=== PATIENT | male | born 1965 | race Hispanic/Latino ===

== ENCOUNTER 2019-06-09 18:30 | Observation (INO) | payer BC ==
[~2019-06-09] VITALS: Ht 172.7 cm; Wt 77.1 kg
--- OUTSIDE RECORDS SUMMARY | 2019-06-09 18:32 | XMS REPORT | Clinical Summary ---
Author Author [facility] Address Unknown Phone Unavailable Care Team Providers Care Microsoft Systems Engineer Name Role Phone Vincent Burns MD PCP Allergies No Known Allergies Medications End Date Status Medication Sig Dispensed Refills Start Date Active acetaminophen-codeine Take 1 tablet 0 (TYLENOL WITH CODEINE #3) by mouth as 9 300-30 mg per tablet needed. 03/05/2019 Discontinued [id number] Take 2 3 packet 0 wrg-[id number]-asb-C packets by 9 (PLENVU) 140-9-5.2 gram mouth 2 (two) powder in packet, times a day. sequential First dose 5 pm, second dose 2 am. Active Problems Problem Noted Date Left lower quadrant pain 02/20/2019 Overview: Added automatically from request for surgery [id number] Encounters Care Team Description Date Type Specialty Toya Phan LPN Left lower quadrant pain (Primary Dx) 03/28/2019 Telephone Gastroenterology Alex Brink MD COLONOSCOPY with bx 03/06/2019 Surgery Gastroenterology Jefferson Parks MD 03/06/2019 Anesthesia Gastroenterology Event Alex Brink MD Left lower quadrant pain (Primary Dx) 03/06/2019 Hospital Gastroenterology Encounter Alex Brink MD 02/25/2019 Telephone Gastroenterology Alex Brink MD Left lower quadrant pain (Primary Dx) 02/20/2019 Office Visit Gastroenterology Xenia Lo MA COLON INSTRUCTIONS 02/20/2019 Documentation Gastroenterology Xenia Lo MA Left lower quadrant pain (Primary Dx) 02/20/2019 Prep for Gastroenterology Surgery after 06/08/2018 Family History Medical History Relation Name Comments Cancer Father Cancer Sister Relation Name Status Comments Father Sister Social History Date Tobacco Use Types Packs/Day Years Used Quit: 2010 Former Smoker Cigarettes Smokeless Tobacco: Never Used Alcohol Use Drinks/Week oz/Week Comments Yes 40 Cans of 24.0 beer Sex Assigned at Date Recorded Not on file Industry Job Start Date Occupation Not on file Not on file Not on file Travel End Travel History Travel Start No recent travel history available. Last Filed Vital Signs Time Taken Vital Sign Reading 03/06/2019 11:35 AM CDT Blood Pressure 110/70 03/06/2019 11:35 AM CDT Pulse 60 03/06/2019 11:20 AM CDT Temperature 36.6 C (97.9 F) 03/06/2019 11:35 AM CDT Respiratory Rate 24 03/06/2019 11:35 AM CDT Oxygen Saturation 95% - Inhaled Oxygen - Concentration 03/06/2019 10:08 AM CDT Weight 86.2 kg (190 lb) 03/06/2019 10:08 AM CDT Height 170.2 cm (5' 7") 03/06/2019 10:08 AM CDT Body Mass Index 29.76 Plan of Treatment Health Maintenance Due Date Last Done Comments COLONOSCOPY SCREENING 2015 SHINGLES VACCINES (#1) 2015 INFLUENZA VACCINE 05/29/2019 Procedures Comments Procedure Name Priority Date/Time Associated Diagnosis COLONOSCOPY 03/06/2019 Left lower quadrant pain 11:15 AM CDT SURGICAL PATHOLOGY Routine 03/06/2019 REQUEST 11:14 AM CDT HEPATIC FUNCTION PANEL Routine 02/20/2019 Left lower quadrant pain 2:12 PM CDT CBC WITH PLATELET AND Routine 02/20/2019 Left lower quadrant pain DIFFERENTIAL 2:12 PM CDT BASIC METABOLIC PANEL Routine 02/20/2019 Left lower quadrant pain 2:12 PM CDT after 06/08/2018 Results * Surgical pathology request (03/06/2019 11:14 AM CDT) [facility]OLOGY AND GENOMIC MEDICINE Surgical See link below for PDF Lab [facility] pathology Report OF PATHOLOGY report AND GENOMIC MEDICINE Result status This is Final Report for [facility] [id number] OF PATHOLOGY AND GENOMIC MEDICINE Specimen Performing Organization Address City/State/Zipcode Phone Number [place] [address] [place] [address] PATHOLOGY AND GENOMIC MEDICINE * CBC with platelet and differential (02/20/2019 2:12 PM CDT) Pathologist [facility] WBC 9.8 3.8 - 10.8 [facility] Thousand/uL [facility] [place] RBC 4.23 4.20 - 5.80 [facility] Million/uL [facility] [place] HGB 13.6 13.2 - 17.1 g/dL [facility] [place] HCT 39.3 38.5 - 50.0 % [facility] [place] MCV 92.9 80.0 - 100.0 fL [facility] [place] MCH 32.2 27.0 - 33.0 pg [facility] [place] MCHC 34.6 32.0 - 36.0 g/dL [facility] [place] RDW 12.8 11.0 - 15.0 % [facility] [place] Platelet count 364 140 - 400 [facility] Thousand/uL [facility] [place] MPV 10.4 7.5 - 12.5 fL [facility] [place] Neutrophils, 5,919 1,500 - 7,800 [facility] absolute cells/uL [facility] [place] Lymphocytes, 2,705 850 - 3,900 cells/uL [facility] absolute [facility] [place] Monocytes, 833 200 - 950 cells/uL [facility] absolute [facility] [place] Eosinophils, 294 15 - 500 cells/uL [facility] absolute [facility] [place] Basophils, 49 0 - 200 cells/uL [facility] absolute [facility] [place] Neutrophils 60.4 % [employer] [place] Lymphocytes 27.6 % [facility] [place] Monocytes 8.5 % [facility] [place] Eosinophils 3.0 % [employer] [place] Basophils + RC 0.5 % [employer] [place] Specimen Blood Narrative Performed At FASTING:NO [facility] FASTING: NO Resulting Agency Comment Performing Organization Information: Site ID: [id number] Name: [facility] Address: [address] [place] [id number] Director: Miranda Whitney Performing Organization Address City/State/Zipcode Phone Number [facility] [place] [phone] * Hepatic function panel (02/20/2019 2:12 PM CDT) [facility] Protein 6.6 6.1 - 8.1 g/dL [facility] [place] Albumin, S 3.9 3.6 - 5.1 g/dL [facility] [place] Globulin, total 2.7 1.9 - 3.7 g/dL [facility] (calc) [facility] [place] Albumin/globuli 1.4 1.0 - 2.5 (calc) [facility] n ratio [facility] [place] Total bilirubin 0.3 0.2 - 1.2 mg/dL [facility] [place] Bilirubin 0.1 < OR=0.2 mg/dL [facility] direct [facility] [place] Bilirubin, 0.2 0.2 - 1.2 mg/dL [facility] indirect (calc) [facility] [place] Alkaline 71 40 - 115 U/L [facility] phosphatase [facility] [place] AST 16 10 - 35 U/L [facility] [place] ALT 19 9 - 46 U/L [facility] [place] Specimen Blood Narrative Performed At FASTING:NO [facility] FASTING: NO Resulting Agency Comment Performing Organization Information: Site ID: [id number] Name: [facility] Address: [address] [place] [id number] Director: Miranda Whitney Performing Organization Address City/[facility] Phone Number [facility] [employer] [address] [address] * Basic metabolic panel (02/20/2019 2:12 PM CDT) [facility] Glucose 106 65 - 139 mg/dL [facility] Comment: DIAGNOSTICS Non-fasting [place] reference interval BUN, whole 19 7 - 25 mg/dL [facility] blood [facility] [place] Creatinine 1.25 0.70 - 1.33 mg/dL [facility] Comment: DIAGNOSTICS For patients >49 years of age, [place] the reference limit for Creatinine is approximately 13% higher for people identified as -Indian. EGFR Non-Afr. 65 > OR=60 [facility] Indian mL/min/1.73m2 [facility] EGFR 76 > OR=60 [facility] Indian mL/min/1.73m2 [facility] BUN/creatinine NOT APPLICABLE 6 - 22 (calc) [facility] ratio [facility] [place] Sodium 140 135 - 146 mmol/L [facility] [place] Potassium 4.4 3.5 - 5.3 mmol/L [facility] [place] Chloride 108 98 - 110 mmol/L [facility] [place] CO2 25 20 - 32 mmol/L [facility] [place] Calcium 8.7 8.6 - 10.3 mg/dL [facility] [place] Specimen Blood Narrative Performed At FASTING:NO [facility] FASTING: NO Resulting Agency Comment Performing Organization Information: Site ID: [id number] Name: [facility] Address: [address] [place] [phone] Director: Miranda Whitney Performing Organization Address City/State/Zipcode Phone Number [facility] [place] [address] [place] [address] after 06/08/2018 Insurance Type Payer Benefit Subscriber ID Effective Phone Address Plan / Dates Group PPO BCBS BCBS xxxxxxxxxxxx 2018-P CHOICE resent PPO/JOS ASH PPO [address] [facility] (Home) [place] [address] Advance Directives Patient has advance care planning documents on file. For more information, jeffery georges contact: Clifton Salcedo [address] [place] [address]
[2019-06-09] MEDS ORDERED: ONDANSETRON HCL INJ 2MG/ML 2ML 2 MG/ML VIAL IV ONE (19:21)
[2019-06-09] MEDS ORDERED: SODIUM CHLORIDE 0.9% 1000ML 1,000 ML IV ONE ×2 (19:30)
[2019-06-09 20:02] LABS: BASOPHILS # (AUTO) 0.1 (0.0-0.1); BASOPHILS % 0.5 % (0.0-1.0); EOSINOPHILS # (AUTO) 0.1 (0.0-0.4); EOSINOPHILS % 0.4 % (0.0-6.0); HEMATOCRIT 46.6 % (38.2-49.6); HEMOGLOBIN 16.3 g/dL (14.0-18.0); LYMPHOCYTES # (AUTO) 2.5 (1.0-3.2); LYMPHOCYTES % 19.1 % (18.0-39.1); MEAN CORPUSCULAR HEMOGLOBIN 31.9 pg (28-32); MEAN CORPUSCULAR VOLUME 91.2 fL (81-99); MONOCYTES % 7.8 % (4.4-11.3); NEUTROPHILS # (AUTO) 9.6 (2.1-6.9); NEUTROPHILS % 71.9 % (38.7-80.0); PLATELET COUNT 392 x10e3/uL (140-360); RED BLOOD COUNT 5.11 x10e6/uL (4.3-5.7); RED CELL DISTRIBUTION WIDTH 12.4 % (11.7-14.4)
--- NOTE | 2019-06-09 20:17 | Diagnostic Imaging Report ---
EXAM: CHEST SINGLE (NOT PORTABLE) DATE: 06/09/2019 7:21 PM INDICATION: ^SOB ^[id number] ^1950 ^Y COMPARISON: None FINDINGS: Lines and tubes: None Heart size normal. No focal pulmonary opacity, pleural effusion or pneumothorax. Upper abdomen unremarkable. No acute bony abnormality. IMPRESSION: No evidence for acute disease. Signed by: Dr. Santiago Faye M.D. on 06/09/2019 8:14 PM
[2019-06-09 20:21] LABS: ALBUMIN/GLOBULIN RATIO 1.3 (0.8-2.0); ANION GAP 18.3 mmol/L (8-16); CALCIUM 10.5 mg/dL (8.4-10.2); CREATININE, SERUM 2.93 mg/dL (0.72-1.25); POTASSIUM 4.3 mmol/L (3.5-5.1)
[2019-06-09] MEDS ORDERED: MORPHINE SULFATE 2 MG/ML SYR 1ML ONE (20:30)
[2019-06-09] MEDS ORDERED: MORPHINE SULFATE 5 MG/ML VIAL IV ONE (21:15)
[2019-06-09] MEDS ORDERED: MORPHINE SULFATE 2 MG/ML SYR 1ML IV ONE (21:15)
[2019-06-09] MEDS ORDERED: MORPHINE SULFATE 2 MG/ML SYR 1ML IV PRN (21:30)
[2019-06-09] MEDS ORDERED: ASPIRIN 81 MG CHEW TAB PO ONE (21:30)
[2019-06-09] MEDS ORDERED: ONDANSETRON HCL INJ 2MG/ML 2ML 2 MG/ML VIAL IV PRN (21:30)
--- OUTSIDE RECORDS SUMMARY | 2019-06-09 21:38 | XMS REPORT ---
Author Author [facility] Address Unknown Phone Unavailable Care Team Providers Care Acquisitions Editor Name Role Phone Leigh ASHTON Unavailable Unavailable Problems This patient has no known problems. Allergies, Adverse Reactions, Alerts This patient has no known allergies or adverse reactions. Medications This patient has no known medications. Results Test Description Test Time Test Comments Text Results Atomic Results Result Comments CHEST SINGLE (NOT PORTABLE) 2019-06-09 20:13:00 [place] [address] Patient Name: TERESE MCFADDEN MR #: [id number] : 1965 Age/Sex: 53/M Req #: [id number] Adm Physician: Ordered by: SUN GUSTAFSON CAR DROPPER Report #: [id number] Location: ER Room/Bed: Procedure: [id number] DX/CHEST SINGLE (NOT PORTABLE) Exam Date: 06/09/19 Exam Time: 1949 REPORT STATUS: Signed EXAM: CHEST SINGLE (NOT PORTABLE) DATE: 09/2019 7:21 PM INDICATION: SOB [id number] 1949 Y COMPARISON: None FINDINGS: Lines and tubes: None Heart size normal. No focal pulmonary opacity, pleural effusion or pneumothorax. Upper abdomen unremarkable. No acute bony abnormality. IMPRESSION: No evidence for acute disease. Signed by: Dr. Janny Lam M.D. on 06/09/2019 8:14 PM Dictated By: JANNY LAM MD 13 Transcribed By: [place] on 06/09/192013 COPY TO: SUN GUSTAFSON NP
--- OUTSIDE RECORDS SUMMARY | 2019-06-09 21:38 | XMS REPORT | Clinical Summary ---
Author Author [facility] Address Unknown Phone Unavailable Care Team Providers Care Wedding Decorator Name Role Phone Vincent Burns MD PCP Allergies No Known Allergies Medications End Date Status Medication Sig Dispensed Refills Start Date Active acetaminophen-codeine Take 1 tablet 0 (TYLENOL WITH CODEINE #3) by mouth as 9 300-30 mg per tablet needed. 03/05/2019 Discontinued [id number] Take 2 3 packet 0 [id number]-FoYr-DEk-asb-C packets by 9 (PLENVU) 140-9-5.2 gram mouth 2 (two) powder in packet, times a day. sequential First dose 5 pm, second dose 2 am. Active Problems Problem Noted Date Left lower quadrant pain 02/20/2019 Overview: Added automatically from request for surgery [id number] Encounters Care Team Description Date Type Specialty Toya Phan LPN Left lower quadrant pain (Primary Dx) 03/28/2019 Telephone Gastroenterology Alex Brink MD COLONOSCOPY with bx 03/06/2019 Surgery Gastroenterology Jefferson Parks MD 03/06/2019 Anesthesia Gastroenterology Event Alex Brink MD Left lower quadrant pain (Primary Dx) 03/06/2019 Hospital Gastroenterology Encounter Alex Brink MD 02/25/2019 Telephone Gastroenterology Alxe Brink MD Left lower quadrant pain (Primary [...] Surgical pathology request (03/06/2019 11:14 AM CDT) [facility] DEPART[facility] OF PATHOLOGY AND GENOMIC MEDICINE Surgical See link below for PDF Lab [facility] DEPARTMENT pathology Report OF PATHOLOGY report AND GENOMIC MEDICINE Result status This is Final Report for [facility] DEPARTMENT [id number] OF PATHOLOGY AND GENOMIC MEDICINE Specimen Performing Organization Address City/State/Zipcode Phone Number [place] [address] [place] [address] PATHOLOGY AND GENOMIC MEDICINE * CBC with platelet and differential (02/20/2019 2:12 PM CDT) Pathologist [facility] WBC 9.8 3.8 - 10.8 [facility] Thousand/uL [facility] [place] RBC 4.23 4.20 - 5.80 [facility] Million/uL [facility] [place] HGB 13.6 13.2 - 17.1 g/dL [facility] [place] HCT 39.3 38.5 - 50.0 % [facility] [place] MCV 92.9 80.0 - 100.0 fL [facility] [place] MCH 32.2 27.0 - 33.0 pg [facility] [place] MCHC 34.6 32.0 - 36.0 g/dL [employer] [facility] [place] RDW 12.8 11.0 - 15.0 % [employer] [facility] [place] Platelet count 364 140 - 400 [facility] Thousand/uL [facility] [place] MPV 10.4 7.5 - 12.5 fL [employer] [facility] [place] Neutrophils, 5,919 1,500 - 7,800 [facility] absolute cells/uL [facility] [place] Lymphocytes, 2,705 850 - 3,900 cells/uL [facility] absolute [facility] [place] Monocytes, 833 200 - 950 cells/uL [facility] absolute [facility] [place] Eosinophils, 294 15 - 500 cells/uL [facility] absolute [facility] [place] Basophils, 49 0 - 200 cells/uL [facility] absolute [facility] [place] Neutrophils 60.4 % [employer] [place] Lymphocytes 27.6 % [employer] [facility] [place] Monocytes 8.5 % [employer] [facility] [place] Eosinophils 3.0 % [employer] [place] Basophils + RC 0.5 % [employer] [place] Specimen Blood Narrative Performed At FASTING:NO [facility] FASTING: NO Resulting Agency Comment Performing Organization Information: Site ID: [id number]: [facility] Address: [address] [place] [phone] Director: [place] Whitney Performing Organization Address City/State/Zipcode Phone Number [facility] [place] [phone] * Hepatic function panel (02/20/2019 2:12 PM CDT) [facility] Protein 6.6 6.1 - 8.1 g/dL [employer] [facility] [place] Albumin, S 3.9 3.6 - 5.1 g/dL [employer] [facility] [place] Globulin, total 2.7 1.9 - 3.7 g/dL [facility] (calc) [facility] [place] Albumin/globuli 1.4 1.0 - 2.5 (calc) [facility] n ratio [facility] [place] Total bilirubin 0.3 0.2 - 1.2 mg/dL [facility] [place] Bilirubin 0.1 < OR=0.2 mg/dL [facility] direct [facility] [place] Bilirubin, 0.2 0.2 - 1.2 mg/dL [facility] indirect (calc) [facility] [place] Alkaline 71 40 - 115 U/L [facility] phosphatase [facility] [place] AST 16 10 - 35 U/L [facility] [place] ALT 19 9 - 46 U/L [facility] [place] Specimen Blood Narrative Performed At FASTING:NO [facility] FASTING: NO Resulting Agency Comment Performing Organization Information: Site ID: [id number] Name: [facility] Address: [address] [place] [phone] Director: Miranda Whitney Performing Organization Address City/[facility] Clinic[facility] Phone Number [facility] [employer] [address] [address] * Basic metabolic panel (02/20/2019 2:12 PM CDT) [facility] Glucose 106 65 - 139 mg/dL [facility] Comment: DIAGNOSTICS Non-fasting [place] reference interval BUN, whole 19 7 - 25 mg/dL [facility] blood [facility] [place] Creatinine 1.25 0.70 - 1.33 mg/dL [facility] Comment: DIAGNOSTICS For patients >49 years of age, [place] the reference limit for Creatinine is approximately 13% higher for people identified as -Citizen [place]. EGFR Non-Afr. 65 > OR=60 [facility] Citizen [place] mL/min/1.73m2 [facility] EGFR 76 > OR=60 [facility] Citizen [place] mL/min/1.73m2 [facility] BUN/creatinine NOT APPLICABLE 6 - 22 (calc) [facility] ratio [facility] [place] Sodium 140 135 - 146 mmol/L [facility] [place] Potassium 4.4 3.5 - 5.3 mmol/L [facility] [place] Chloride 108 98 - 110 mmol/L [facility] [place] CO2 25 20 - 32 mmol/L [facility] [place] Calcium 8.7 8.6 - 10.3 mg/dL [facility] [place] Specimen Blood Narrative Performed At FASTING:NO [facility] FASTING: NO Resulting Agency Comment Performing Organization Information: Site ID: [id number]: [facility] Address: [address] [place] [phone] Director: Miranda Whitney Performing Organization Address City/State/Zipcode Phone Number [facility] [place] [address] [place] [address] after 06/08/2018 Insurance Type Payer Benefit Subscriber ID Effective Phone Address Plan / Dates Group PPO BCBS BCBS xxxxxxxxxxxx 2018-P CHOICE resent PPO/JOS ASH PPO [address] [facility] (Home) [place] [address] Advance Directives Patient has advance care planning documents on file. For more information, jeffery georges contact: Clifton Salcedo [address] [place] [address]
[2019-06-09] MEDS ORDERED: MORPHINE SULFATE INJ 4 MG/ML INJ 1ML IV PRN (21:45)
--- NOTE | 2019-06-09 23:40 | NUR ---
Received report from ER nurse.
[2019-06-10] VITALS (9 sets, daily range): BP systolic 97–126; BP diastolic 57–76
--- NOTE | 2019-06-10 00:54 | NUR ---
Patient arrived to floor via w/c. Denies pain at this time.
[2019-06-10] MEDS: SODIUM CHLORIDE 0.9% 1000ML 1,000 ML IV SCH ×6 (02:27→22:34)
[2019-06-10 04:18] LABS: BILIRUBIN,URINE SMALL (NEGATIVE); CLARITY,URINE CLEAR (CLEAR); COLOR,URINE YELLOW (YELLOW); KETONES,URINE NEGATIVE (NEGATIVE); LEUKOCYTE ESTERASE ,URINE NEGATIVE (NEGATIVE); NITRITE,URINE NEGATIVE (NEGATIVE); PROTEIN,URINE DIPSTICK 1+ (NEGATIVE); URINE UROBILINOGEN 0.2 mg/dL (0.2 - 1)
[2019-06-10 04:27] LABS: BACTERIA,URINE MANY /HPF; EPITHELIAL CELLS,URINE FEW /LPF; RBC,URINE 0-5 /HPF (0-5); WBC,URINE (MAN) 0-5 /HPF (0-5)
[2019-06-10 04:28] LABS: HYALINE CASTS >15 (0-1)
[2019-06-10 04:48] LABS: CREATINE KINASE MB 2.1 ng/mL (0-5.0)
[2019-06-10 06:21] LABS: BASOPHILS # (AUTO) 0.1 (0.0-0.1); BASOPHILS % 0.5 % (0.0-1.0); EOSINOPHILS # (AUTO) 0.2 (0.0-0.4); HEMATOCRIT 38.7 % (38.2-49.6); HEMOGLOBIN 13.2 g/dL (14.0-18.0); LYMPHOCYTES # (AUTO) 2.8 (1.0-3.2); LYMPHOCYTES % 28.2 % (18.0-39.1); MEAN CORPUSCULAR HGB CONC 34.1 g/dL (31-35); MEAN CORPUSCULAR VOLUME 93.9 fL (81-99); MONOCYTES # (AUTO) 1.1 (0.2-0.8); MONOCYTES % 10.6 % (4.4-11.3); NEUTROPHILS # (AUTO) 5.8 (2.1-6.9); NEUTROPHILS % 58.4 % (38.7-80.0); PLATELET COUNT 305 x10e3/uL (140-360); RED BLOOD COUNT 4.12 x10e6/uL (4.3-5.7); RED CELL DISTRIBUTION WIDTH 12.8 % (11.7-14.4)
--- NOTE | 2019-06-10 06:31 | NUR ---
Patient voided per urinal. Sample of urine sent to lab.
[2019-06-10 06:32] LABS: ALBUMIN 3.5 g/dL (3.5-5.0); ALBUMIN/GLOBULIN RATIO 1.3 (0.8-2.0); ANION GAP 11.7 mmol/L (8-16); CALCIUM 8.6 mg/dL (8.4-10.2); CREATININE, SERUM 2.05 mg/dL (0.72-1.25); POTASSIUM 3.7 mmol/L (3.5-5.1)
--- NOTE | 2019-06-10 06:49 | NUR ---
H&P cc: dehydrated HPI: 53yoM, PCP , exposed to the heat/sun for extended period, developed overheating symptoms feeling very hot and light headed. Some muscle cramps. PMH: alcohol use PShx: none Allergies; see emr Fh/SH; ; no cigs; etoh daily 5 beers; petroleum refinery worker meds; see MAR ROS; no f/c/s/N/V/D/ASHLEY/vision changes/cp/sob/skin rash/ v/s; revd PE: tired appearing anicteric ns1s2 mod bs soft nt nd no e/t skin dry flat affect a&ox3; khalil labs/meds; revd A/P: Hypotension Dehydration ALISHA Acute rhabdomyolysis UTI Lauri Newman MD, PhD.
--- NOTE | 2019-06-10 07:00 | NUR ---
Received patient with eyes open. Respiration even and unlabored without SOB. Call light in reach.
[2019-06-10] MEDS ORDERED: CEFTRIAXONE SOD 1 GM/NS 50 ML 50 ML IV SCH (07:30)
--- NOTE | 2019-06-10 13:55 | NUR ---
Visit made by the Spiritual Care Department Pastoral Visitor, Nicole Fortune. PV provided pastoral presence, prayer, hospitality, and supportive listening. Pastoral Visitor informed pt/family of the scope of Cutting Machine Operator Helper Services and availability. KOLTON WORKMAN Director Gift Spiritual Care Department O: [phone] Pager: [phone] ([phone] number calling from)
[2019-06-10 13:59] LABS: CREATINE KINASE 316 IU/L (30-200)
--- NOTE | 2019-06-10 18:45 | NUR ---
Received bedside report from day shift RN. The patient is laying on the bed, not in distress. Bed height low, side rails up, call light within reach, and wheels lock.
[2019-06-11] VITALS: BP 117/56
[2019-06-11 04:00] VITALS: BP 108/58
[2019-06-11] MEDS: SODIUM CHLORIDE 0.9% 1000ML 1,000 ML IV SCH ×3 (05:47→13:27)
[2019-06-11 05:55] LABS: BASOPHILS # (AUTO) 0.1 (0.0-0.1); BASOPHILS % 0.5 % (0.0-1.0); EOSINOPHILS # (AUTO) 0.2 (0.0-0.4); EOSINOPHILS % 1.7 % (0.0-6.0); HEMATOCRIT 37.7 % (38.2-49.6); HEMOGLOBIN 12.5 g/dL (14.0-18.0); LYMPHOCYTES # (AUTO) 2.4 (1.0-3.2); LYMPHOCYTES % 24.9 % (18.0-39.1); MEAN CORPUSCULAR HEMOGLOBIN 31.9 pg (28-32); MEAN CORPUSCULAR HGB CONC 33.2 g/dL (31-35); MEAN CORPUSCULAR VOLUME 96.2 fL (81-99); MONOCYTES # (AUTO) 0.7 (0.2-0.8); MONOCYTES % 7.4 % (4.4-11.3); NEUTROPHILS # (AUTO) 6.2 (2.1-6.9); NEUTROPHILS % 65.1 % (38.7-80.0); PLATELET COUNT 296 x10e3/uL (140-360); RED BLOOD COUNT 3.92 x10e6/uL (4.3-5.7); RED CELL DISTRIBUTION WIDTH 12.5 % (11.7-14.4)
[2019-06-11 06:18] LABS: ANION GAP 9.4 mmol/L (8-16); CALCIUM 8.1 mg/dL (8.4-10.2); CREATININE, SERUM 1.27 mg/dL (0.72-1.25); POTASSIUM 4.4 mmol/L (3.5-5.1)
[2019-06-11 08:12] VITALS: BP 116/72
[2019-06-11] MEDS ORDERED: CEFTRIAXONE SOD 1 GM/NS 50 ML 50 ML IV SCH (09:00)
[2019-06-11 09:43] VITALS: BP 116/72
[2019-06-11 11:44] VITALS: BP 108/83
[2019-06-11 16:21] VITALS: BP 115/75
--- NOTE | 2019-06-11 17:03 | NUR ---
dc instructions and prescriptions given. pt verbalized understanding iv dc pressure dressing applied and taped pt is now waiting for ride home
--- NOTE | 2019-06-11 17:07 | NUR ---
pt off unit to home via wheel chair
== END 2019-06-11 17:05 | disposition home or self-care (01) ==
LOC: ER 18:30 → ERHOLD 21:35 → MED/SURG 06-10 00:58
PROVIDERS: ADMIT Internal Medicine; ATTEND Internal Medicine
DX: M62.82 Rhabdomyolysis (principal); E86.0 Dehydration; N17.9 Acute kidney failure, unspecified; Z82.49 Family history of ischemic heart disease and other diseases of the circulatory system; N39.0 Urinary tract infection, site not specified; I95.9 Hypotension, unspecified; X30.XXXA Exposure to excessive natural heat, initial encounter
CPT/HCPCS: 36415 ×2; 71045; 80048; 80053 ×2; 81001; 82550 ×3; 82553 ×2; 84484 ×2; 85025 ×3; 87086; 93005; 96361; 96374; 96375; 99284; G0378 ×3; J0696 ×2; J2270; J2405; J7030 ×3

== ENCOUNTER 2021-06-06 17:53 | Observation (INO) | payer BC ==
[~2021-06-06] VITALS: Ht 170.2 cm; Wt 90.7 kg
[2021-06-06] MEDS ORDERED: ONDANSETRON HCL INJ 2MG/ML 2ML 2 MG/ML VIAL IV STA (19:13)
[2021-06-06] MEDS ORDERED: SODIUM CHLORIDE 0.9% 1000ML 1,000 ML IV ONE ×2 (19:15)
[2021-06-06] MEDS ORDERED: SODIUM CHLORIDE 0.9% 1000ML 2,000 ML ONE (19:24)
[2021-06-06] MEDS ORDERED: ONDANSETRON HCL INJ 2MG/ML 2ML 2 MG/ML VIAL ONE (19:24)
[2021-06-06 19:38] LABS: BASOPHILS # (AUTO) 0.1 (0.0-0.1); BASOPHILS % 0.4 % (0.0-1.0); EOSINOPHILS # (AUTO) 0.1 (0.0-0.4); EOSINOPHILS % 0.3 % (0.0-6.0); HEMATOCRIT 43.7 % (38.2-49.6); HEMOGLOBIN 14.8 g/dL (14.0-18.0); LYMPHOCYTES % 12.6 % (18.0-39.1); MEAN CORPUSCULAR HEMOGLOBIN 31.8 pg (28-32); MEAN CORPUSCULAR HGB CONC 33.9 g/dL (31-35); MEAN CORPUSCULAR VOLUME 93.8 fL (81-99); MONOCYTES # (AUTO) 0.8 (0.2-0.8); MONOCYTES % 4.9 % (4.4-11.3); NEUTROPHILS # (AUTO) 12.8 (2.1-6.9); NEUTROPHILS % 81.3 % (38.7-80.0); PLATELET COUNT 364 x10e3/uL (140-360); RED BLOOD COUNT 4.66 x10e6/uL (4.3-5.7); RED CELL DISTRIBUTION WIDTH 13.2 % (11.7-14.4)
[2021-06-06 19:53] LABS: ALBUMIN 4.5 g/dL (3.5-5.0); ALBUMIN/GLOBULIN RATIO 1.1 (0.8-2.0); ANION GAP 18.5 mmol/L (8-16); CALCIUM 9.6 mg/dL (8.4-10.2); CREATININE, SERUM 3.09 mg/dL (0.72-1.25); POTASSIUM 4.5 mmol/L (3.5-5.1)
[2021-06-06] MEDS ORDERED: ONDANSETRON HCL INJ 2MG/ML 2ML 2 MG/ML VIAL IV PRN (21:00)
[2021-06-06] MEDS: SODIUM CHLORIDE 0.9% 1000ML 1,000 ML IV SCH (22:52)
[2021-06-07] VITALS (8 sets, daily range): BP systolic 103–131; BP diastolic 71–91
[2021-06-07 02:47] LABS: CLARITY,URINE SL CLOUDY (CLEAR); COLOR,URINE YELLOW (YELLOW); KETONES,URINE NEGATIVE (NEGATIVE); LEUKOCYTE ESTERASE ,URINE NEGATIVE (NEGATIVE); NITRITE,URINE NEGATIVE (NEGATIVE); PROTEIN,URINE DIPSTICK NEGATIVE (NEGATIVE); URINE UROBILINOGEN 0.2 mg/dL (0.2 - 1)
[2021-06-07 02:52] LABS: BACTERIA,URINE FEW /HPF; EPITHELIAL CELLS,URINE MODERATE /LPF; RBC,URINE 0-5 /HPF (0-5); WBC,URINE (MAN) 0-5 /HPF (0-5)
[2021-06-07] MEDS ORDERED: PNEUMOCOCCAL VACCINE POLYVALENT 23 MCG/0.5 ML VIAL IM SCH (03:24)
[2021-06-07] MEDS: SODIUM CHLORIDE 0.9% 1000ML 1,000 ML IV SCH ×4 (04:31→22:58)
[2021-06-07 06:52] LABS: BASOPHILS % 0.4 % (0.0-1.0); EOSINOPHILS # (AUTO) 0.2 (0.0-0.4); EOSINOPHILS % 2.1 % (0.0-6.0); HEMATOCRIT 37.4 % (38.2-49.6); HEMOGLOBIN 12.5 g/dL (14.0-18.0); LYMPHOCYTES # (AUTO) 2.6 (1.0-3.2); MEAN CORPUSCULAR HEMOGLOBIN 31.9 pg (28-32); MEAN CORPUSCULAR HGB CONC 33.4 g/dL (31-35); MEAN CORPUSCULAR VOLUME 95.4 fL (81-99); MONOCYTES % 10.2 % (4.4-11.3); NEUTROPHILS # (AUTO) 5.5 (2.1-6.9); NEUTROPHILS % 59.1 % (38.7-80.0); PLATELET COUNT 295 x10e3/uL (140-360); RED BLOOD COUNT 3.92 x10e6/uL (4.3-5.7); RED CELL DISTRIBUTION WIDTH 13.2 % (11.7-14.4)
[2021-06-07 07:24] LABS: CREATINE KINASE MB 1.9 ng/mL (0-5.0)
[2021-06-07 07:39] LABS: ALBUMIN 3.3 g/dL (3.5-5.0); ALBUMIN/GLOBULIN RATIO 1.1 (0.8-2.0); ANION GAP 13.9 mmol/L (8-16); CALCIUM 7.7 mg/dL (8.4-10.2); CREATININE, SERUM 2.05 mg/dL (0.72-1.25); POTASSIUM 3.9 mmol/L (3.5-5.1)
[2021-06-07 14:36] LABS: CREATINE KINASE MB 1.9 ng/mL (0-5.0)
[2021-06-08 05:38] VITALS: BP 143/95
[2021-06-08 05:39] VITALS: BP 119/72
[2021-06-08 06:04] LABS: BASOPHILS # (AUTO) 0.1 (0.0-0.1); BASOPHILS % 0.6 % (0.0-1.0); EOSINOPHILS # (AUTO) 0.2 (0.0-0.4); EOSINOPHILS % 2.7 % (0.0-6.0); HEMATOCRIT 37.2 % (38.2-49.6); HEMOGLOBIN 12.3 g/dL (14.0-18.0); LYMPHOCYTES # (AUTO) 2.5 (1.0-3.2); LYMPHOCYTES % 31.5 % (18.0-39.1); MEAN CORPUSCULAR HEMOGLOBIN 31.8 pg (28-32); MEAN CORPUSCULAR HGB CONC 33.1 g/dL (31-35); MEAN CORPUSCULAR VOLUME 96.1 fL (81-99); MONOCYTES # (AUTO) 0.7 (0.2-0.8); MONOCYTES % 8.8 % (4.4-11.3); NEUTROPHILS # (AUTO) 4.4 (2.1-6.9); NEUTROPHILS % 56.1 % (38.7-80.0); PLATELET COUNT 281 x10e3/uL (140-360); RED BLOOD COUNT 3.87 x10e6/uL (4.3-5.7); RED CELL DISTRIBUTION WIDTH 13.1 % (11.7-14.4)
[2021-06-08 06:28] LABS: ANION GAP 12.4 mmol/L (8-16); CALCIUM 7.5 mg/dL (8.4-10.2); CREATININE, SERUM 1.25 mg/dL (0.72-1.25); POTASSIUM 4.4 mmol/L (3.5-5.1)
[2021-06-08 07:58] VITALS: BP 119/81
[2021-06-08 08:01] VITALS: BP 119/81
[2021-06-08] MEDS: SODIUM CHLORIDE 0.9% 1000ML 1,000 ML IV SCH ×2 (09:16→12:57)
[2021-06-08 12:38] VITALS: BP 125/93
[2021-06-08 15:53] VITALS: BP 123/85
== END 2021-06-08 16:40 | disposition home or self-care (01) ==
LOC: ER 19:13 → ERHOLD 21:26 → MED/SURG3 06-07 02:51
PROVIDERS: ADMIT Internal Medicine; ATTEND Internal Medicine
DX: E86.0 Dehydration (principal); X32.XXXA Exposure to sunlight, initial encounter; Y93.89 Activity, other specified; Y92.007 Garden or yard of unspecified non-institutional (private) residence as the place of occurrence of the external cause; M62.82 Rhabdomyolysis; N17.9 Acute kidney failure, unspecified; I12.9 Hypertensive chronic kidney disease with stage 1 through stage 4 chronic kidney disease, or unspecified chronic kidney disease; N18.32 Chronic kidney disease, stage 3b; Z20.822 Contact with and (suspected) exposure to COVID-19
CPT/HCPCS: 36415 ×3; 71045; 80048; 80053 ×2; 81001; 82550 ×3; 82553 ×2; 83735; 84484 ×2; 85025 ×3; 93005; 99284; G0378 ×3; J2405; J7030 ×3; U0002